=== PATIENT | female | born 1995 | race African-American/Black ===

== ENCOUNTER 2016-06-23 10:04 | Emergency (ER) | payer OTHER | END 2016-06-23 10:50 | disposition home or self-care (01) | LOC: BURERS 10:04 | DX: J20.9 Acute bronchitis, unspecified (principal) | CPT/HCPCS: 99283 ==

== ENCOUNTER 2016-07-24 00:52 | Emergency (ER) | payer OTHER ==
[2016-07-24 01:14] LABS: Bilirubin Negative (Negative); Blood, Urine Negative (Negative); Clarity Clear (Clear); Glucose, Urine (Dipstick) Negative (Negative); Leukocyte Negative (Negative); Nitrite Negative (Negative); Protein, Urine (Dipstick) Negative (Neg-Trace)
[2016-07-24 01:15] LABS: Specific Gravity, Urine 1.031 (1.002-1.036)
[2016-07-24] MEDS ORDERED: traMADol HCl 50 MG TAB ONE (02:30)
[2016-07-24] MEDS ORDERED: Ibuprofen 800 MG TAB ONE (02:30)
--- NOTE | 2016-07-24 07:17 | CT ---
PRELIMINARY REPORT/[facility]/EMERGENCY AFTER HOURS PROCEDURE: EXAM: CT Abdomen and Pelvis Without Intravenous Contrast CLINICAL HISTORY: 21 years old, female; Pain; Abdominal pain; Flank; Left lower quadrant (llq); Patient HX: Pt states she has llq pain x 3 months but worse tonight. TECHNIQUE: Axial computed tomography images of the abdomen and pelvis without intravenous contrast. This CT exa m was performed using one or more of the following dose reduction techniques: automated exposure con trol, adjustment of the mA and/or kV according to patient size, and/or use of iterative reconstruction technique. Coronal reformatted images were created and reviewed. EXAM DATE/TIME: 07/24/2016 1:33 AM COMPARISON: No relevant prior studies available. FINDINGS: Limitations: Limited noncontrast CT. Lower thorax: 3 mm right lower lobe pulmonary nodule on axial image 1, likely benign. ABDOMEN: Liver: No acute findings. Gallbladder and bile ducts: No acute findings. No calcified stones. No ductal dilation. Pancreas: No acute findings. No ductal dilation. Spleen: No acute findings. No splenomegaly. Adrenals: No acute findings. No mass. Kidneys and ureters: Punctate left upper pole nonobstructing intrarenal stone. No ureteral stone or obstruction pattern. There is increased bilateral renal pyramid density, nonspecific, can be seen wi th increased urine specific gravity, early nephrocalcinosis. Stomach and bowel: Probable mild constipation. No specific bowel obstruction pattern. There are mild ly distended fluid-filled small bowel loops in the pelvis, nonspecific. Appendix: No findings to suggest acute appendicitis. PELVIS: Bladder: There is mild hazy density in the lower pelvic fat/mesentery, nonspecific. Can't exclude in flammatory process, such as PID, cystitis, or enteritis. There is nondistention of the urinary bladd er, limits evaluation. There is mild wall prominence. There is possibly hyperdense luminal material, could be hemorrhagic or inflammatory. Correlate with clinical findings. No stones. Reproductive: There is small vaginal air density, nonspecific. Ovaries are not well isolated from pe lvic bowel loops and uterus. ABDOMEN and PELVIS: Intraperitoneal space: No free air. No abscess/organized fluid collection. Bones/joints: No acute fracture. No dislocation. Soft tissues: No acute findings. Vasculature: No acute findings. No abdominal aortic aneurysm. Lymph nodes: No acute findings. No enlarged lymph nodes. IMPRESSION: 1. Can't exclude PID, or cystitis; see above details. Correlate with clinical/laboratory findings. 2. Nephrolithiasis. No ureteral stone visualized. 3. Other findings as above. Thank you for allowing us to participate in the care of your patient. Dictated and Authenticated by: Jonathan Licona MD 07/24/2016 3:00 AM Central Time ([place] \T\ [place]) FINAL REPORT CT ABDOMEN AND PELVIS WITHOUT CONTRAST: Date: 07/24/[address] of the abdomen and pelvis was done without oral or IV contrast. Axial slices were acquired and coronal reconstructions were done. In general, without oral and IV contrast, there are many sec tions of this patient's abdomen and pelvis that do not visualize very well, thus, the sensitivity is slightly limited. The lung bases are clear. The top slice suggests a tiny 2-3 mm nodule in the periphery of the right lower lobe. The odds of significance are quite low given the age group and size. The liver, spleen, pancreas, and aorta are unremarkable within the limitations of the noncontrast st udy. The gallbladder is difficult to see well. The adrenal glands are difficult to seen. There is a small, nonobstructing calculus in the left kidney. There is generalized increased density in the huong al pyramids bilaterally, which can sometimes signal early nephrocalcinosis. There is no evidence of renal obstruction. No definite ureteral calculi seen. There is a moderate amount of fecal material in the colon. Some of the loops of small bowel in the p elvic region are fluid-filled and nonspecifically dilated. There is no evidence of hola obstruction . There does appear to be a little haziness in the patient's mesentery, which is a nonspecific findi ng. No free air or free fluid seen. CT of the pelvis was of low sensitivity due to all the loops of bowel and lack of contrast. No speci fic masses were seen, but the adnexal areas were visualized poorly. The urinary bladder is collapsed and is difficult to assess. The bony structures show no acute findings. IMPRESSION: 1. Small, nonobstructing left renal calculus. Bilateral prominence of renal pyramid density. See ab ove. No evidence of obstructive uropathy at the moment. 2. Nonspecific bowel pattern with mild constipation. 3. Some mild hazy increased density in the patient's mesentery, a nonspecific finding that can be s een in infections or the idiopathic. 4. Pelvis seen poorly. Urinary bladder evaluated poorly. Report in agreement with preliminary reading by Juliana. POS: HOME
== END 2016-07-24 03:12 | disposition home or self-care (01) ==
LOC: BURERS 00:52
DX: N20.0 Calculus of kidney (principal)
CPT/HCPCS: 74176; 81003

== ENCOUNTER 2016-09-29 15:57 | Emergency (ER) | payer OTHER ==
[2016-09-29 16:18] LABS: Clarity Cloudy (Clear); Leukocyte Trace (Negative); Nitrite Negative (Negative); Specific Gravity, Urine 1.025 (1.005-1.030)
[2016-09-29 16:19] LABS: Bacteria/HPF Rare-Few HPF (None Seen); Bilirubin Negative (Negative); Blood, Urine Large (Negative); Glucose, Urine (Dipstick) Negative (Negative); Protein, Urine (Dipstick) > or equal to 300 mg/dL (Neg-Trace); RBC/HPF GREATER THAN 50-TNTC HPF (0-3); Squamous Epithelial 0-3 HPF (0-3); WBC/HPF 0-3 HPF (0-3)
[2016-09-29 16:53] LABS: Anion Gap 12 mmol/L (10-20); BUN (Urea Nitrogen) 11 mg/dL (7.0-18.7); Calc. Creatinine Clearance 0 mL/min (70-130); Calcium 9.4 mg/dL (7.8-10.44); Carbon Dioxide 26 mmol/L (22-29); Chloride 109 mmol/L (98-107); Estimated GFR-MDRD 84; Glucose 97 mg/dL (70-105); Potassium 3.8 mmol/L (3.5-5.1); Sodium 143 mmol/L (136-145)
[2016-09-29 16:57] LABS: Hemoglobin 12.6 g/dL (12.0-16.0); Lymphocytes 26 % (21-51); MDiff Complete? YES; Mean Corpuscular HGB CONC 32.2 g/dL (32.0-36.0); Mean Corpuscular Hemoglobin 26.3 pg (27.0-31.0); Mean Corpuscular Volume 81.7 fl (81.0-99.0); Mean Platelet Volume 6.6 fL (7.4-10.4); Monocytes 2 % (0-10); Neutrophil 72 % (42-75); Platelet Count 310 thou/uL (130-400); RBC Distribution Width 12.5 % (11.5-14.5)
[2016-09-29] MEDS ORDERED: Ciprofloxacin 500 MG TAB ONE (17:04)
== END 2016-09-29 17:08 | disposition home or self-care (01) ==
LOC: BURERS 15:57
DX: R31.9 Hematuria, unspecified (principal)
CPT/HCPCS: 36415; 80048; 81003; 81015; 85025; 87077; 87086; 87186; 99283

== ENCOUNTER 2016-10-20 12:11 | Emergency (ER) | payer OTHER, SELFPAY | END 2016-10-20 12:33 | disposition home or self-care (01) | LOC: BURERS 12:11 | DX: S16.1XXA Strain of muscle, fascia and tendon at neck level, initial encounter (principal); V49.9XXA Car occupant (driver) (passenger) injured in unspecified traffic accident, initial encounter | CPT/HCPCS: 99283 ==

== ENCOUNTER 2017-01-16 06:28 | Emergency (ER) | payer SELFPAY ==
[2017-01-16] MEDS ORDERED: Dexamethasone 4 mg/ml Vial ONE (06:48)
[2017-01-16] MEDS ORDERED: Ketorolac Tromethamine 60 MG/2 ML VIAL ONE (06:48)
== END 2017-01-16 07:19 | disposition home or self-care (01) ==
LOC: BURERS 06:28
DX: J02.9 Acute pharyngitis, unspecified (principal)
CPT/HCPCS: 87081; 87430; 96372; J1100; J1885

== ENCOUNTER 2017-01-17 20:45 | Emergency (ER) | payer SELFPAY ==
[2017-01-17] MEDS ORDERED: Ketorolac Tromethamine 60 MG/2 ML VIAL ONE (21:06)
== END 2017-01-17 21:24 | disposition home or self-care (01) ==
LOC: BURERS 20:45
DX: J02.9 Acute pharyngitis, unspecified (principal); Z79.899 Other long term (current) drug therapy
CPT/HCPCS: 96372; J1885

== ENCOUNTER 2017-02-20 21:01 | Emergency (ER) | payer MEDICAID, SELFPAY ==
[2017-02-20] MEDS ORDERED: Sulfameth/Trimethoprim DS 800-160mg TAB ONE (21:25)
[2017-02-20 21:29] LABS: Bilirubin Negative (Negative); Blood, Urine Large (Negative); Clarity Cloudy (Clear); Glucose, Urine (Dipstick) Negative (Negative); Leukocyte Small (Negative); Nitrite Negative (Negative); Protein, Urine (Dipstick) Trace mg/dL (Neg-Trace); Specific Gravity, Urine 1.029 (1.002-1.036); pH, Urine 6.5 (5.0-9.0)
[2017-02-20 21:38] LABS: Bacteria/HPF 2+ HPF (None Seen); Crystals/HPF 1+ AMORPH URATES HPF (Negative); Other Microscopic Description MOD. CLUE CELLS; WBC/HPF 0-3 HPF (0-3)
[2017-02-20 21:39] LABS: Pregnancy Test - Urine (BHCG) Negative (Negative); Pregu Control Background? CLEAR/WHITE (CLR/WHITE); Pregu Control Bar Appear? YES (CONTROL BAR); Specific Gravity 1.029 (1.002-1.036)
[2017-02-20] MEDS ORDERED: cefTRIAXone\\ROCEPHIN 1 GM VIAL ONE (21:47)
[2017-02-20] MEDS ORDERED: Azithromycin 250 MG TAB ONE (21:47)
== END 2017-02-20 22:10 | disposition home or self-care (01) ==
LOC: BURERS 21:01
DX: N76.0 Acute vaginitis (principal)
CPT/HCPCS: 81003; 81015; 81025; 87086; 87480; 87491; 87510; 87591; 87660; 96372; J0696

== ENCOUNTER 2017-03-26 19:11 | Emergency (ER) | payer MEDICAID ==
[2017-03-26 19:40] LABS: Bilirubin Negative (Negative); Blood, Urine Large (Negative); Clarity Cloudy (Clear); Glucose, Urine (Dipstick) Negative (Negative); Leukocyte Moderate (Negative); Nitrite Negative (Negative); Protein, Urine (Dipstick) > or equal to 300 mg/dL (Neg-Trace); Specific Gravity, Urine 1.025 (1.005-1.030); pH, Urine 8.5 (5.0-9.0)
[2017-03-26 19:41] LABS: Pregnancy Test - Urine (BHCG) Negative (Negative)
[2017-03-26 19:42] LABS: Pregu Control Background? CLEAR/WHITE (CLR/WHITE); Pregu Control Bar Appear? YES (CONTROL BAR); Specific Gravity 1.025 (1.002-1.036)
[2017-03-26 19:47] LABS: Bacteria/HPF 1+ HPF (None Seen); Crystals/HPF None Seen HPF (Negative); Hyaline Casts/LPF NONE SEEN LPF (0-3 Hyaline); Other Casts/LPF None Seen LPF (0-3 Hyaline); Oval Fat Bodies/HPF None Seen HPF (None Seen); RBC/HPF GREATER THAN 50-TNTC HPF (0-3); Renal Epithelial None Seen HPF (0-3); Sperm/HPF None Seen HPF (None Seen); Squamous Epithelial 0-3 HPF (0-3); Transitional Epithelial NONE SEEN HPF (0-3); Trichomonas/HPF None Seen HPF (None Seen); Yeast-All Forms None Seen HPF (None Seen)
[2017-03-26] MEDS ORDERED: Cephalexin 500 MG CAP ONE (19:51)
== END 2017-03-26 19:55 | disposition home or self-care (01) ==
LOC: BURERS 19:11
DX: N12 Tubulo-interstitial nephritis, not specified as acute or chronic (principal)
CPT/HCPCS: 81003; 81015; 81025; 99283

== ENCOUNTER 2017-03-30 23:19 | Emergency (ER) | payer MEDICAID ==
[2017-03-30] MEDS ORDERED: cefTRIAXone\\ROCEPHIN 2 GM VIAL ONE (23:34)
[2017-03-30] MEDS ORDERED: Ketorolac Tromethamine 30 MG/ML VIAL ONE (23:34)
[2017-03-30 23:46] LABS: Pregnancy Test - Urine (BHCG) Negative (Negative); Pregu Control Bar Appear? YES (CONTROL BAR); Specific Gravity 1.017 (1.002-1.036)
[2017-03-30 23:47] LABS: Pregu Control Background? CLEAR/WHITE (CLR/WHITE)
[2017-03-30 23:50] LABS: Bilirubin Negative (Negative); Blood, Urine Large (Negative); Clarity Cloudy (Clear); Glucose, Urine (Dipstick) Negative (Negative); Leukocyte Large (Negative); Nitrite Positive (Negative); Protein, Urine (Dipstick) 100 mg/dL (Neg-Trace); pH, Urine 6.5 (5.0-9.0)
[2017-03-30 23:59] LABS: #Basophils 0.1 thou/uL (0.0-0.2); #Eosinphils 0.1 thou/uL (0.0-0.7); #Lymphocytes 1.8 thou/uL (1.20-3.40); #Monocytes 0.6 thou/uL (0.11-0.59); #Neutrophils 3.2 thou/uL (1.40-6.50); %Basophils 1.9 % (0.0-1.0); %Eosinophils 1.4 % (0.0-10.0); %Monocytes 10.9 % (0.0-10.0); %Neutrophils 54.7 % (42.0-75.0); Hemoglobin 13.4 g/dL (12.0-16.0); Mean Corpuscular HGB CONC 32.9 g/dL (32.0-36.0); Mean Corpuscular Hemoglobin 27.3 pg (27.0-31.0); Mean Platelet Volume 5.8 fL (7.4-10.4); Platelet Count 301 thou/uL (130-400); RBC Distribution Width 12.4 % (11.5-14.5); White Blood Cell (WBC) Count 5.8 thou/uL (4.8-10.8)
[2017-03-31 00:03] LABS: Bacteria/HPF 2+ HPF (None Seen); Other Microscopic Description FEW CLUE CELLS; Squamous Epithelial 0-3 HPF (0-3)
[2017-03-31 00:08] LABS: Anion Gap 15 mmol/L (10-20); BUN (Urea Nitrogen) 15 mg/dL (7.0-18.7); Calc. Creatinine Clearance 0 mL/min (70-130); Calcium 9.8 mg/dL (7.8-10.44); Carbon Dioxide 25 mmol/L (22-29); Chloride 105 mmol/L (98-107); Estimated GFR-MDRD Greater than 90; Glucose 87 mg/dL (70-105); Lipase 24 U/L (8-78); Potassium 3.5 mmol/L (3.5-5.1); Sodium 141 mmol/L (136-145)
--- NOTE | 2017-03-31 10:20 | CT ---
CT ABDOMEN AND PELVIS WITHOUT CONTRAST: DATE: 03/31/17. FINDINGS: Spiral CT of the abdomen and pelvis was done without oral or IV contrast for evaluation of left lower quadrant pain. Axial slices were acquired, then coronal reconstructions were done. The lung bases are clear. The liver, spleen, pancreas, gallbladder, adrenal glands, and abdominal ao rta were normal in appearance within the limitations of a noncontrast study. There were some small n onobstructing calculi seen in the kidneys, mainly the left. There is no gross hydronephrosis on eith er side, however, the left collecting system is mildly more prominent than the right. No ureteral ca lculi were appreciated. The only calcification near the bladder was actually on the right side at th e UVJ. My understanding is that the pain is only left sided, and there is urinary tract dilation on the right. CT of the pelvis shows no pelvic masses or gross inflammatory changes. There is some mild concentric thickening of the urinary bladder wall which raises the question of cystitis. There may be trace of fluid in pelvis which could be physiologic. The bowel is nondistended with no sign of obstruction, but there is abundant fecal material in the co tasia. No gross inflammatory changes could be seen around bowel, though subtle changes would be missed due to the lack of contrast and paucity of internal fat planes. There is no free air or free fluid. IMPRESSION: 1. Nonobstructing renal calculi, primarily left. No evidence of significant urinary tract obstructi on. See above. 2. Mild constipation. 3. Mild concentric thickening of the urinary bladder wall. In the proper context, cystitis might be considered. 4. Calcification near the right UVJ, but no ureteral dilation and this was not the side of stated pain. REPORT IN AGREEMENT WITH PRELIMINARY READING BY BLANCA. POS: HOME
[2017-04-01 19:46] LABS: Chlamydia by PCR Not Detected (NotDetected); GC by PCR Not Detected (NotDetected)
== END 2017-03-31 01:14 | disposition home or self-care (01) ==
LOC: BURERS 23:19
DX: N13.2 Hydronephrosis with renal and ureteral calculous obstruction (principal); N30.01 Acute cystitis with hematuria
CPT/HCPCS: 74176; 80048; 81003; 81015; 81025; 83690; 85025; 87077; 87086; 87186; 87491; 87591; 96365; 96375; J0696; J1885

== ENCOUNTER 2017-06-11 13:46 | Emergency (ER) | payer MEDICAID, SELFPAY ==
[2017-06-11 14:24] LABS: #Eosinphils 0.1 thou/uL (0.0-0.7); #Lymphocytes 1.3 thou/uL (1.20-3.40); #Monocytes 0.4 thou/uL (0.11-0.59); #Neutrophils 1.4 thou/uL (1.40-6.50); %Basophils 1.5 % (0.0-1.0); %Eosinophils 1.7 % (0.0-10.0); %Lymphocytes 41.8 % (21.0-51.0); %Monocytes 11.4 % (0.0-10.0); %Neutrophils 43.6 % (42.0-75.0); Hemoglobin 13.6 g/dL (12.0-16.0); Mean Corpuscular HGB CONC 33.9 g/dL (32.0-36.0); Mean Corpuscular Hemoglobin 27.4 pg (27.0-31.0); Mean Corpuscular Volume 80.7 fl (81.0-99.0); Mean Platelet Volume 6.8 fL (7.4-10.4); Platelet Count 301 thou/uL (130-400); RBC Distribution Width 12.1 % (11.5-14.5); Red Blood Cell (RBC) Count 4.96 mill/uL (4.20-5.40); White Blood Cell (WBC) Count 3.1 thou/uL (4.8-10.8)
[2017-06-11 14:36] LABS: ALT (SGPT) 12 U/L (8-55); AST (SGOT) 16 U/L (5-34); Albumin 4.1 g/dL (3.5-5.0); Alkaline Phosphatase 53 U/L (40-150); Anion Gap 11 mmol/L (10-20); BUN (Urea Nitrogen) 13 mg/dL (7.0-18.7); Bilirubin, Total 0.7 mg/dL (0.2-1.2); CK (CPK) 153 U/L (29-168); Calc. Creatinine Clearance 0 mL/min (70-130); Calcium 9.5 mg/dL (7.8-10.44); Carbon Dioxide 26 mmol/L (22-29); Chloride 106 mmol/L (98-107); Estimated GFR-MDRD Greater than 90; Globulin 3.3 g/dL (2.4-3.5); Glucose 92 mg/dL (70-105); Lipase 16 U/L (8-78); Potassium 3.4 mmol/L (3.5-5.1); Protein, Total 7.4 g/dL (6.0-8.3); Sodium 140 mmol/L (136-145)
[2017-06-11 14:37] LABS: Bilirubin Negative (Negative); Blood, Urine Negative (Negative); Clarity Clear (Clear); Glucose, Urine (Dipstick) Negative (Negative); Leukocyte Trace (Negative); Nitrite Positive (Negative); Protein, Urine (Dipstick) Negative (Neg-Trace); Urobilinogen 0.2 mg/dL (0.2-1.0); pH, Urine 8.5 (5.0-9.0)
[2017-06-11 14:37] LABS: CKMB 1.5 ng/mL (0-6.6); Troponin I Less than 0.010 ng/mL (< 0.028)
[2017-06-11 14:44] LABS: Pregnancy Test - Urine (BHCG) Negative (Negative)
[2017-06-11 14:45] LABS: Pregu Control Background? CLEAR/WHITE (CLR/WHITE); Pregu Control Bar Appear? YES (CONTROL BAR)
[2017-06-11] MEDS ORDERED: Ketorolac Tromethamine 30 MG/ML VIAL ONE (14:48)
[2017-06-11 14:58] LABS: Bacteria/HPF Rare-Few HPF (None Seen); RBC/HPF 0-3 HPF (0-3); Squamous Epithelial 0-3 HPF (0-3); WBC/HPF 0-3 HPF (0-3)
--- NOTE | 2017-06-11 18:22 | RAD ---
PORTABLE CHEST: 06/11/2017 COMPARISON: 12/13/2014 FINDINGS: There has been no adverse interval change. The heart is normal in size, and the lungs are clear. Th ere is no congestion, edema, or pleural effusion. Thoracic scoliosis is noted as before. IMPRESSION: No acute thoracic findings. POS: HOME
== END 2017-06-11 15:36 | disposition home or self-care (01) ==
LOC: BURERS 13:46
DX: R07.89 Other chest pain (principal)
CPT/HCPCS: 71045; 80053; 81003; 81015; 81025; 82553; 83690; 84484; 85025; 93005; 94760; 96374; J1885

== ENCOUNTER 2017-09-29 23:51 | Emergency (ER) | payer SELFPAY ==
[2017-09-30] MEDS ORDERED: Ketorolac Tromethamine 30 MG/ML VIAL ONE (00:33)
[2017-09-30] MEDS ORDERED: Ondansetron HCl/PF 4 MG/2 ML Vial ONE (00:33)
[2017-09-30 00:48] LABS: #Basophils 0.1 thou/uL (0.0-0.2); #Eosinphils 0.1 thou/uL (0.0-0.7); #Lymphocytes 1.5 thou/uL (1.20-3.40); #Monocytes 0.8 thou/uL (0.11-0.59); #Neutrophils 4.2 thou/uL (1.40-6.50); %Basophils 1.4 % (0.0-1.0); %Eosinophils 1.1 % (0.0-10.0); %Lymphocytes 22.1 % (21.0-51.0); %Monocytes 12.3 % (0.0-10.0); %Neutrophils 63.1 % (42.0-75.0); Hemoglobin 12.1 g/dL (12.0-16.0); Mean Corpuscular HGB CONC 33.5 g/dL (32.0-36.0); Mean Corpuscular Hemoglobin 25.6 pg (27.0-31.0); Mean Corpuscular Volume 76.3 fL (78.0-98.0); Mean Platelet Volume 5.6 fL (7.4-10.4); Platelet Count 256 thou/uL (130-400); Red Blood Cell (RBC) Count 4.74 mill/uL (4.20-5.40); White Blood Cell (WBC) Count 6.6 thou/uL (4.8-10.8)
[2017-09-30 00:55] LABS: Anion Gap 16 mmol/L (10-20); BUN (Urea Nitrogen) 11 mg/dL (7.0-18.7); Calc. Creatinine Clearance 0 mL/min (70-130); Calcium 9.7 mg/dL (7.8-10.44); Carbon Dioxide 23 mmol/L (22-29); Chloride 107 mmol/L (98-107); Estimated GFR-MDRD Greater than 90; Glucose 103 mg/dL (70-105); Potassium 3.5 mmol/L (3.5-5.1); Sodium 142 mmol/L (136-145)
[2017-09-30 01:14] LABS: Clarity Hazy (Clear)
[2017-09-30 01:15] LABS: Bilirubin Negative (Negative); Blood, Urine Trace (Negative); Glucose, Urine (Dipstick) Negative (Negative); Leukocyte Small (Negative); Nitrite Negative (Negative); Protein, Urine (Dipstick) 30 mg/dL (Neg-Trace); Specific Gravity, Urine 1.015 (1.005-1.030); pH, Urine 6.5 (5.0-9.0)
[2017-09-30] MEDS ORDERED: HYDROcodone/Acetaminophen 10/325 mg Tablet ONE (01:22)
[2017-09-30 01:24] LABS: Bacteria/HPF 1+ HPF (None Seen); Other Microscopic Description FEW CLUE CELLS; RBC/HPF 0-3 HPF (0-3); Transitional Epithelial 0-3 HPF (0-3)
== END 2017-09-30 01:25 | disposition home or self-care (01) ==
LOC: BURERS 23:51
DX: N39.0 Urinary tract infection, site not specified (principal)
CPT/HCPCS: 80048; 81003; 81015; 85025; 96374; 96375; J1885; J2405

== ENCOUNTER 2017-10-17 12:04 | Emergency (ER) | payer SELFPAY ==
[2017-10-17] MEDS ORDERED: Ibuprofen 800 MG TAB ONE (12:23)
[2017-10-17 12:29] LABS: Clarity Slightly Cloudy (Clear); Glucose, Urine (Dipstick) Negative (Negative); Leukocyte Small (Negative); Nitrite Negative (Negative); Protein, Urine (Dipstick) Negative (Neg-Trace); Specific Gravity, Urine 1.015 (1.005-1.030)
[2017-10-17 12:30] LABS: Bilirubin Negative (Negative); Blood, Urine Trace (Negative); Pregnancy Test - Urine (BHCG) Negative (Negative); Pregu Control Background? CLEAR/WHITE (CLR/WHITE); Pregu Control Bar Appear? YES (CONTROL BAR); Specific Gravity 1.015 (1.002-1.036); Urobilinogen 0.2 mg/dL (0.2-1.0)
[2017-10-17 12:36] LABS: Bacteria/HPF Rare-Few HPF (None Seen); Crystals/HPF RARE AMORPH URATES HPF (Negative); RBC/HPF 0-3 HPF (0-3); Squamous Epithelial 0-3 HPF (0-3); Transitional Epithelial 0-3 HPF (0-3)
[2017-10-17 12:38] LABS: Oval Fat Bodies/HPF 1+ HPF (None Seen)
[2017-10-17] MEDS ORDERED: cefTRIAXone\\ROCEPHIN 1 GM VIAL ONE (12:47)
== END 2017-10-17 13:10 | disposition home or self-care (01) ==
LOC: BURERS 12:04
DX: N12 Tubulo-interstitial nephritis, not specified as acute or chronic (principal)
CPT/HCPCS: 81003; 81015; 81025; 87077; 87086; 87186; 96372; J0696

== ENCOUNTER 2017-10-31 20:11 | Emergency (ER) | payer SELFPAY ==
[2017-10-31] MEDS ORDERED: Bicillin CR 1.2 MILL UNITS/2 ML SYRINGE ONE (20:41)
== END 2017-10-31 20:37 | disposition home or self-care (01) ==
LOC: BURERS 20:11
DX: J02.9 Acute pharyngitis, unspecified (principal); J35.1 Hypertrophy of tonsils
CPT/HCPCS: 87081; 87430; 96372; J0558

== ENCOUNTER 2017-12-05 18:12 | Emergency (ER) | payer SELFPAY ==
[2017-12-05] MEDS ORDERED: Ibuprofen 800 MG TAB ONE (19:02)
--- NOTE | 2017-12-05 20:46 | RAD ---
CHEST TWO VIEWS 12/05/17 Comparison is made with a 06/11/17 study. The heart is normal in size and the lungs are clear. No infiltrate or effusion was seen. Scoliosis is noted as usual. There is no current sign of pneumonia. IMPRESSION: No acute thoracic findings. POS: HOME
== END 2017-12-05 19:05 | disposition home or self-care (01) ==
LOC: BURERS 18:12
DX: M94.0 Chondrocostal junction syndrome [Tietze] (principal)
CPT/HCPCS: 71046; 93005

== ENCOUNTER 2019-06-04 11:35 | Emergency (ER) | payer SELFPAY | END 2019-06-04 12:25 | disposition home or self-care (01) | LOC: BURERS 11:35 | DX: J06.9 Acute upper respiratory infection, unspecified (principal) | CPT/HCPCS: 99283 ==